=== PATIENT | male | born 1960 | race Caucasian/White ===

== ENCOUNTER 2019-11-16 07:11 | Observation (INO) | payer BC, SELFPAY ==
[2019-11-16] VITALS (13 sets, daily range): BP systolic 120–147; BP diastolic 72–96; PULSE 41–128; RESP 13–18; TEMP 36.1–36.7; O2SAT 95–100; BMI 28.9; BMI 28.5; BMI 28.6
--- NOTE | 2019-11-16 07:44 | EKG12_ITS ---
Test Reason : Blood Pressure : / mmHG Vent. Rate : 142 BPM Atrial Rate : 129 BPM P-R Int : 000 ms QRS Dur : 086 ms QT Int : 318 ms P-R-T Axes : 000 057 004 degrees QTc Int : 489 ms Atrial fibrillation with rapid ventricular response Nonspecific ST abnormality Abnormal ECG Confirmed by ROSALBA HERNANDEZ, AMELIE ([id number]), news copy editor DARIEL BROWN ([id number]) on 11/17/2019 1:01:15 PM Referred By: Confirmed By:AMELIE NAVARRETE MD
--- NOTE | 2019-11-16 07:44 | RAD_ITS ---
STUDY: X-RAY CHEST REASON FOR EXAM: Male, 59 years old. pt says heart rate trouble lately -- some chest pain/pressure TECHNIQUE: AP portable view of the chest. COMPARISON: None. FINDINGS: There are monitoring devices. The lungs are clear and expanded. There is no demonstrated pleural abnormality. Normal size heart. Normal mediastinum and viry. Normal visualized pulmonary arteries. Normal visualized aortic arch and descending thoracic aorta. Normal visualized thoracic spine. Normal visualized ribs, clavicles, and shoulders. There is no demonstrated abnormality of the visualized soft tissue structures of the upper abdomen. RAD/Chest 1 View (Portable) IMPRESSION: Normal x-ray examination of the chest. Electronically Signed: Emmanuel Wynn MD at 8:12 EDT , Service support ,
[2019-11-16] MEDS: Aspirin 81 MG TAB.CHEW 324 MG PO (07:48)
--- NOTE | 2019-11-16 07:49 | ED.DCSUM_ITS ---
- ER Visit Summary Date of Service: 11/16/19 Chief Complaint: Chest pain History of Present Illness: The patient is a 59 M who presents with chest pain that is been intermittent since yesterday. Patient states he has had intermittent pain in the substernal area since yesterday. Patient states when he gets the pain he feels that his heart is irregular. Patient states he tried to capture an EKG on his Apple watch but was unsuccessful. Patient describes his pain as a pressure. Patient states nothing makes it better or worse. Patient states he went running yesterday and did not have any episodes during that. Patient admits to some intermittent lightheadedness. Patient denies any nausea or vomiting. Patient denies any diaphoresis. Patient denies any shortness of breath. Cardiac risk factors include hypercholesterolemia and a family history of coronary artery disease at the age of 55 by his father. Physical Examination: Vital signs are stable. Patient is afebrile. Patient is in no acute distress. Oral mucosa is pink and moist. Neck is supple. Trachea is midline. There is no JVD noted. Heart was regular rate and rhythm. Lungs are clear and equal bilaterally. Abdomen is soft. Bowel sounds are normal. There is no tenderness. There is no rebound or guarding noted. Skin is warm dry. Cranial nerves II through XII are intact. There are no focal motor or sensory deficits noted. Extremities are intact. There is no calf tenderness or edema. Test Results: Initial EKG showed atrial fibrillation with a rate of 142. There are no acute ST or T wave changes. While I was in the room with the patient he converted spontaneously to normal sinus rhythm. Repeat EKG showed sinus rhythm with a rate of 59. There are no acute ST or T wave changes. CBC and basic metabolic profile were essentially within normal limits. Troponin was normal. Magnesium was normal. TSH was normal. Portable chest x-ray was obtained. There is no acute cardiopulmonary process. This was interpreted by the radiologist and reviewed by myself. Emergency Department Course and Treatment: Patient was given aspirin here. Patient had no further episodes of atrial fibrillation here in the emergency department. Patient was feeling better on reevaluation. Case was discussed with the hospitalist. He will admit the patient to his service for observation. Patient understood and was agreeable with the plan. All questions were answered. Disposition: Admit to hospital Impression: 1. Paroxysmal atrial fibrillation with rapid ventricular response This note was generated with Can[employer] dictation software. It may contain incorrect words, spelling, and punctuation that were not noted in review of the chart prior to signing ED Disposition - Plan for ED Patient: Disposition: Acute Care Hospital [facility] Diagnosis: Paroxysmal atrial fibrillation with rapid ventricular response Referrals: Bi Drew MD [Primary Care Provider] -
--- NOTE | 2019-11-16 07:53 | EKG12_ITS ---
Test Reason : REPEAT Blood Pressure : / mmHG Vent. Rate : 059 BPM Atrial Rate : 059 BPM P-R Int : 160 ms QRS Dur : 088 ms QT Int : 424 ms P-R-T Axes : 032 047 024 degrees QTc Int : 419 ms Sinus bradycardia with sinus arrhythmia Otherwise normal ECG Confirmed by ROSALBA HERNANDEZ, AMELIE ([id number]), health editor DARIEL BROWN ([id number]) on 11/17/2019 1:01:33 PM Referred By: NANCY Confirmed By:AMELIE NAVARRETE MD
[2019-11-16 07:54] LABS: Absolute Lymphocyte Count 1.79 X10^3/uL (0.83-4.51); Absolute Neutrophil Count 3.8 X10^3/uL (2.0-7.7); Basophil# 0.02 X10^3/uL; Basophil% 0.3 % (0-1); Eosinophil# 0.15 X10^3/uL; Eosinophils% 2.3 % (0-5); Hematocrit 47.1 % (40-54); Hemoglobin 16.3 g/dL (13.0-16.5); Lymphocyte # 1.79 X10^3/ul (4.0); Lymphocyte % 27.8 % (19-41); Mean Corp Hgb Conc 34.6 g/dL (32-36); Mean Corpuscular Hgb 30.8 pg (27.0-32.0); Mean Corpuscular Volume 88.9 fL (80-94); Mean Platelet Vol. 10.5 fl (6.2-12.0); Monocyte% 10.9 % (0-10); NRBC Flagged by Analyzer 0 % (0-5); Neutrophil # 3.75 X10^3/uL (2.7-7.7); Neutrophil % 58.2 % (47-70); Platelet Count 129 K/mm3 (150-450); RBC Distribution Width SD 38.7 fl (35.1-43.9); White Blood Count 6.4 K/mm3 (4.4-11.0)
[2019-11-16 08:10] LABS: Anion Gap 5 (5-15); BUN 22 mg/dL (7-18); BUN/Creat Ratio 22.5 RATIO (10-20); Chloride 108 mmol/L (98-107); Creatinine, Serum 0.98 mg/dL (0.70-1.30); EST Glomerular Filtration Rate 84 mL/min (>60); Est Glom Filt Rate - Afr Amer 102 mL/min (>60); Estimated Creatinine Clearance 85.87 ml/min; Glucose 117 mg/dL (74-106); Magnesium 2.1 mg/dL (1.6-2.6); Potassium 3.7 mmol/L (3.5-5.1); Sodium Level 142 mmol/L (136-145); Thyroid Stim Hormone (TSH) 2.55 uIU/mL (0.358-3.74)
--- NOTE | 2019-11-16 13:43 | PCM.HP.STD ---
Problem List (1) Paroxysmal atrial fibrillation with rapid ventricular response Status: Acute (2) HLD (hyperlipidemia) Status: Chronic (3) Hypothyroidism Status: Chronic History of Present Illness Date of Admission: 11/16/19 Chief Complaint: chest pressure The patient is a 59 year old M with pmhx of hypothyroidism and hyperlipidemia who presented to the ER today with chest pressure and abnormal heart rhythm. The patient has been having issues with abnormal heart beat since september. He noticed palpitations and his apple watch EKG was reading abnormal. This would come and go. Today he had palpitations and chest pressure. Chest pressure was midsternal with no SOB, radiation, diaphoresis, or nausea. He checked his pulse at his carotid and it felt irregular. His apple watch did read out afib at one point. He came to the ER and was found to have Afib with RVR rate 148. This spontaneously converted back to NSR in the ER with no medication given. The patient currently has no chest pressure. He has no hx of Afib. He states that he is healthy and a frequent runner, he has done 2 half marathons. He states that he can confirm with his apple watch that his heart normally runs in the 40s, and he can attain 160 when running. [] Past Medical History Past Medical History (Chronic Problems): Chronic Problems HLD (hyperlipidemia) (Chronic) Hypothyroidism (Chronic) Allergies No Known Allergies Allergy (Verified 11/16/19 07:12) Home Medications: Ambulatory Orders Medication Instructions Recorded Levothyroxine [Synthroid] 88 mcg PO DAILY 11/16/19 Simvastatin 5 mg PO DAILY 11/16/19 Surgical History: - - cyst removal Psychiatric History: No pertinent psych hx Lives: With Family Smoking Status: Never smoker Alcohol: None Drugs: None - *Family History Maternal History Items: Cancer - colon Paternal History Items: Heart Disease - multiple MIs between 55 and 65 including CABG and from [place] at 65. Review of Systems Constitutional: Denies: Chills, Fever, Weight Change HEENT: Denies: Head Aches, Sinus Congestion, Sinus Drainage Cardiovascular: Reports: Chest Pressure, Palpitations. Denies: Edema, Light Headedness, Syncope Respiratory: Denies: Cough, Shortness of breath at rest, Sputum production Gastrointestinal: Denies: Abdominal Pain, Nausea, Vomiting Genitourinary: Denies: Dysuria Musculoskeletal: Denies: Joint Pain, Joint Tenderness Skin: Denies: Rash, Wounds Neurological: Denies: Numbness, Tingling, Focal weakness Psychiatric: Denies: Anxiety, Depression, Homicidal Ideations, Suicidal Ideations Hematologic/ Lymphatic: Denies: Easy Bruising, Easy Bleeding VTE Information - Inpt Only VTE Present on Admission: No VTE Mechan Device Prophylaxis: None VTE Pharm Prophylaxis ordered?: Yes Patient Problems: Active and Suspected Problems Paroxysmal atrial fibrillation with rapid ventricular response (Acute) - Physical Exam Vitals/I&O's: Vital Signs Temp Pulse Resp BP Pulse Ox 97.9 F 50 L 14 120/72 98 11/16/19 10:34 11/16/19 10:34 11/16/19 10:34 11/16/19 10:34 11/16/19 10:34 Oxygen Delivery Method Room Air Weight: 199 lb 4.766 oz Body Mass Index (BMI) 28.5 Intake and Output for Last 24 Hours 11/14/19 11/15/19 11/16/19 23:59 23:59 23:59 Intake Total 200 / 200 Balance 200 / 200 General: Alert, Oriented x3, Cooperative HEENT: Atraumatic, PERRLA, EOMI, Normocephalic Neck: Supple, No JVD, Negative Carotid Bruits Lungs: Clear to auscultation, Normal air movement Cardiovascular: Regular rate, No murmurs Abdomen: Bowel Sounds Present, Soft, Non Tender Extremities: No edema, Capillary Refill Less than 3 Seconds Skin: No rashes, No breakdown Musculoskeletal: No Tenderness to Palpation of Joints or Extremities Neurological: Cranial nerves II-XII grossly intact Psych/Mental Status: Normal Affect, Appropriate, Alert and oriented to time, place, person, mood and affect Laboratory Results 11/16/19 07:30: WBC 6.4, RBC 5.30, Hgb 16.3, Hct 47.1, MCV 88.9, MCH 30.8, MCHC 34.6, RDW Std Deviation 38.7, RDW Coeff of Deborah 12.0, Plt Count 129 L, MPV 10.5, Immature Gran % (Auto) 0.500, Neut % (Auto) 58.2, Lymph % (Auto) 27.8, Metcalfe % (Auto) 10.9 H, Eos % (Auto) 2.3, Baso % (Auto) 0.3, Absolute Neuts (auto) 3.8, Absolute Lymphs (auto) 1.79, Nucleated RBC % 0 11/16/19 07:30: Sodium 142, Potassium 3.7, Chloride 108 H, Carbon Dioxide 29.0, Anion Gap 5, BUN 22 H, Creatinine 0.98, Estim Creat Clear Calc 85.87, Est GFR (MDRD) Af Amer 102, Est GFR (MDRD) Non-Af 84, BUN/Creatinine Ratio 22.5 H, Glucose 117 H, Calcium 9.0, Magnesium 2.1, Troponin I < 0.015, TSH 2.55 11/16/19 10:50: Troponin I < 0.015 11/16/19 13:20: Troponin I Pending Current Medications Acetaminophen (Tylenol) 650 mg PO Q6H PRN PRN PRN Reason: Pain Score 1-10/Temp > 100.7 F Atorvastatin Calcium (Lipitor) 5 mg PO QHS TARA Sodium Chloride () 250 mls @ 15 mls/hr IV .[id number] PRN PRN Reason: Saline Flush Sodium Chloride () 250 mls @ 15 mls/hr IV .[id number] PRN PRN Reason: Additional IVPB Infusion Levothyroxine Sodium (Synthroid) 88 mcg PO DAILY@0600 TARA Sodium Chloride () 10 - 40 ml IV UD PRN PRN Reason: SALINE FLUSH Temazepam (Restoril) 15 mg PO QHS PRN PRN PRN Reason: INSOMNIA Assessment/Plan All Active Problems Paroxysmal atrial fibrillation with rapid ventricular response (Acute) 1. pAfib with RVR - he has been having palpitations and abnormal heart beat since september so likely this is not first episode. He had a heart rate of 148 in the ER however it converted to NSR without treatment. His normal resting heart rate is in the 40s, probably because he is a distance runner. Will obtain echo. He has an appointment with [facility] later this month. He is a former patient of Dr. Beasley. -Chadvasc is zero. -trop neg x2 -tsh normal 2. Chest pressure - trop neg. Cycle. repeat am ekg. stress test in AM. + fm hx CAD - father multiple MIs, CABG, age 53-63, at 63 from [place]. 3. hypothyroidism - tsh normal continue synthroid 4. HLD - check FLP continue lipitor. DVT ppx: early ambulation This patient was seen by Nicolas Palma PA-C under the supervision of Dr. Najera.
[2019-11-16] MEDS: Atorvastatin Calcium 10 MG Tablet 5 MG PO (21:29)
[2019-11-17 02:59] VITALS: PULSE 45
[2019-11-17 03:30] VITALS: BP 109/63; PULSE 41; RESP 12; TEMP 37; O2SAT 97
--- NOTE | 2019-11-17 05:55 | EKG12_ITS ---
Test Reason : AM EKG Blood Pressure : / mmHG Vent. Rate : 045 BPM Atrial Rate : 045 BPM P-R Int : 152 ms QRS Dur : 090 ms QT Int : 512 ms P-R-T Axes : 039 062 047 degrees QTc Int : 442 ms Sinus bradycardia Otherwise normal ECG When compared with ECG of 16-NOV-2019 07:41, MANUAL COMPARISON REQUIRED, DATA IS UNCONFIRMED Confirmed by ROSALBA HERNANDEZ, AMELIE ([id number]), newspaper photo editor DARIEL BROWN ([id number]) on 11/18/2019 3:56:41 PM Referred By: FLORIDALMA Confirmed By:AMELIE NAVARRETE MD
--- NOTE | 2019-11-17 05:55 | ECHOD_ITS ---
Reason For Study: A. fib/flutter Procedure This was a 2D Doppler, Color Flow transthoracic echocardiogram. Exam performed portable in patient room. Left Ventricle Normal LV size. Left ventricular systolic function is normal. The estimated ejection fraction is 65 %. No evidence for diastolic dysfunction. No regional wall motion abnormalities noted. Right Ventricle Normal RV size. Normal systolic function. Atria Normal left atrium. Normal right atrium. Mitral Valve Normal mitral valve. Mild (1+) eccentric mitral valve insufficiency. Tricuspid Valve Normal tricuspid valve. Mild (1+) tricuspid valve insufficiency. Aortic Valve Normal aortic valve. Trisinus/trileaflet aortic valve. Pulmonic Valve Normal pulmonic valve. Great Vessels Normal aortic root. The pulmonary artery is normal size. Normal inferior vena cava. Pericardium/Pleural No pericardial effusion. MMode/2D Measurements & Calculations LVIDd: 5.1 cm IVSd: 0.89 cm Ao root diam: 2.9 cm LVIDs: 3.5 cm LVPWd: 0.98 cm FS: 30.9 % LAV(MOD-bp): 52.5 ml LVAd ap4: 30.9 cm2 SV(MOD-sp4): 56.1 ml LAV(MOD-bp) Indexed: 25.2 ml/m2 EDV(MOD-sp4): 103.7 ml LAV(MOD-sp2): 45.7 ml EDV(sp4-el): 101.9 ml LAV(MOD-sp4): 51.6 ml LVAs ap4: 19.4 cm2 ESV(MOD-sp4): 47.6 ml ESV(sp4-el): 46.8 ml EF(MOD-sp4): 54.1 % EF(sp4-el): 54.1 % SV(sp4-el): 55.1 ml LA A4 area: 18.9 cm2 LA dimension(2D): 3.6 cm RA A4 area: 18.5 cm2 Doppler Measurements & Calculations MV E max hank: 61.7 cm/sec Lat Peak E' Hank: 10.4 cm/sec Med Peak E' Hank: 7.9 cm/sec MV A max hank: 56.1 cm/sec E/E' lat: 5.9 E/E' med: 7.8 MV E/A: 1.1 Ao V2 max: 126.8 cm/sec LV V1 max: 98.4 cm/sec PA V2 max: 129.0 cm/sec Ao max P.4 mmHg LV V1 max P.9 mmHg TR max hank: 209.5 cm/sec TR max P.6 mmHg Interpretation Summary Normal LV size. Left ventricular systolic function is normal. The estimated ejection fraction is 65 %. No evidence for diastolic dysfunction. Mild (1+) eccentric mitral valve insufficiency. Ordering Physician: Bi Najera Referring Physician: Bi Drew Performed By: Naz Zheng RDCS
[2019-11-17] MEDS: Levothyroxine 88 MCG Tablet PO (06:11)
[2019-11-17 06:51] VITALS: BP 120/71; PULSE 50; RESP 16; TEMP 36.4; O2SAT 95
[2019-11-17 07:22] VITALS: PULSE 46
[2019-11-17 07:49] LABS: Cholesterol 165 mg/dL (200); High Density Lipoprotein 36 mg/dL; Triglycerides 149 mg/dL; Very Low Density Lipoprotein 30 mg/dL (5-40)
[2019-11-17 10:18] VITALS: BP 113/69; PULSE 59; RESP 16; TEMP 36.6; O2SAT 97
--- NOTE | 2019-11-17 12:54 | STRESSREP_ITS ---
Stress Test Report Exercise myocardial perfusion stress test. 59-year-old male with a history of chest pain. Stress protocol: Resting EKG demonstrates sinus bradycardia with a rate of 50 bpm normal intervals are noted resting blood pressures 128/72 mmHg. The patient exercised according to the regular Bertin protocol for a total duration of 12 minutes. The maximum heart rate attained was 157 bpm which was 96% of maximum predicted heart rate the maximum workload was 13.7 metabolic equivalents. At rest there were no ST or T wave changes noted to suggest ischemia at peak exercise no ST or T wave changes were noted to suggest ischemia. No clinical angina was noted. The resting blood pressure was 128/72 with a peak blood pressure 188/82. Rate-press ure product was 29,500. Myocardial perfusion protocol. 12.0 mCi of technetium 99m sestamibi was injected at rest. The patient exercised according to regular Bertin protocol. At peak exercise 36.0 mCi of technetium 99m sestamibi was injected stress images were obtained stress and rest images were reconstructed and compared in the short axis vertical long horizontal long axis. Gated images were also obtained Perfusion SPECT analysis: Review of the stress images demonstrate normal uptake of tracer noted in all areas of the myocardium the resting images similar demonstrate normal uptake of tracer noted in all areas of the myocardium. No areas of reversibility are noted suggest ischemia no previous infarct is noted. Gated SPECT analysis: Gated ejection fraction is noted to be 60%. Conclusion: Normal exercise myocardial perfusion stress test at a high workload. Preserved ejection fraction.
--- NOTE | 2019-11-17 14:45 | DCINST_ITS ---
- Discharge Diagnoses Current Active Problems: Current Active and Chronic Problems Paroxysmal atrial fibrillation with rapid ventricular response (Acute) HLD (hyperlipidemia) (Chronic) Hypothyroidism (Chronic) You will use the following diet at home:: Cardiac Your food should be the consistency of: Regular Your liquids should be the consistency of: Regular/Thin Discharge Activity: Return to Normal Activity Allergies/Adverse Reactions: Allergies No Known Allergies Allergy (Verified 11/16/19 07:12) Medications to take at Discharge Levothyroxine [Synthroid] 88 mcg PO DAILY 11/16/19 Simvastatin 5 mg PO DAILY 11/16/19 Orders to be completed after discharge: 30-Day Event Recorder [[facility]] Time Frame: 11/17/19, Location: None Selected Primary Care Physician: Bi Drew MD [Primary Care Provider] - Please follow up with your Primary Care Physician in: 1-2 weeks Test Results: Test results from this visit will be discussed in further detail at your follow- up appointment, if applicable. Please Follow Up With: Tramaine Mistry MD When: 4 weeks Proposed Discharge Date: 11/17/19
--- NOTE | 2019-11-17 14:46 | DS.PCM_ITS ---
<Nicolas Palma - Last Filed: 11/17/19 14:46> Discharge Date and Diagnosis Date of Admission: 11/16/19 Date of Discharge: 11/17/19 - Primary Discharge Diagnosis Active and Suspected Problems Paroxysmal atrial fibrillation with rapid ventricular response Chest pressure 2/2 above Hypothyroidism HLD - Secondary Discharge Diagnosis Chronic Problems HLD (hyperlipidemia) (Chronic) Hypothyroidism (Chronic) Hospital Course and Treatment Imaging Results: Diagnostics Stress test: Normal exercise myocardial perfusion stress test at a high workload. Preserved ejection fraction. 2D Echo: Interpretation Summary Normal LV size. Left ventricular systolic function is normal. The estimated ejection fraction is 65 %. No evidence for diastolic dysfunction. Mild (1+) eccentric mitral valve insufficiency. RAD/Chest 1 View (Portable) IMPRESSION: Normal x-ray examination of the chest. Operations: None Procedures: 2-D Echocardiogram, Stress test Summary of Care Provided: Hospital Course: The patient is a 59 year old M with pmhx of hypothyroidism and hyperlipidemia who presented to the ER with chest pressure and palpitations. He had been having palpitations for about a month and his apple watch had detected both irregular rhythms and afib. He had been in his normal state of health with no recent illness or infection. The day of presentation he had palpitations, midsternal chest pressure, and he checked his pulse and it felt irregular. He came to the ER and was found to have afib with RVR rate in the 140s. He did not receive any medication however spontaneously converted back to NSR. His resting heart rate is normally in the 40s. He is a distance runner. He was admitted to PCU. Repeat EKG had no ischemic changes. troponin was negative x3. TSH was normal. The following day he had a negative stress test and echo which showed 1+ MVI and TVI, preserved EF. With his low resting heart rate we were hesitant to start antiarrhymic therapy. He remained in SR throughout stay. We discharged him home in stable condition with a 30 day event monitor and with follow up with cardiology, Dr. Mistry. He will also need follow up with his PCP in 1-2 weeks. This patient was seen by Nicolas Palma PA-C under the supervision of Dr. Lagos. [] - Physical Exam Vitals/I&O's: Vital Signs Temp Pulse Resp BP Pulse Ox 97.8 F 59 L 16 113/69 97 11/17/19 10:18 11/17/19 10:18 11/17/19 10:18 11/17/19 10:18 11/17/19 10:18 Oxygen Delivery Method Room Air Weight: 199 lb 4.766 oz Body Mass Index (BMI) 28.5 Intake and Output for Last 24 Hours 11/15/19 11/16/19 11/17/19 23:59 23:59 23:59 Intake Total 1000 / 1000 240 / 240 Balance 1000 / 1000 240 / 240 General: Alert, Oriented x3, Cooperative HEENT: Atraumatic, PERRLA, EOMI, Normocephalic Neck: Supple, No JVD, Negative Carotid Bruits Lungs: Clear to auscultation, Normal air movement Cardiovascular: Regular rate, No murmurs Abdomen: Bowel Sounds Present, Soft, Non Tender Extremities: No edema, Capillary Refill Less than 3 Seconds Skin: No rashes, No breakdown Musculoskeletal: No Tenderness to Palpation of Joints or Extremities Neurological: Cranial nerves II-XII grossly intact Psych/Mental Status: Normal Affect, Appropriate, Alert and oriented to time, place, person, mood and affect Laboratory Results 11/17/19 06:16: Triglycerides 149, Cholesterol 165, LDL Cholesterol 99, VLDL Cholesterol 30, HDL Cholesterol 36 L Current Medications Acetaminophen (Tylenol) 650 mg PO Q6H PRN PRN PRN Reason: Pain Score 1-10/Temp > 100.7 F Atorvastatin Calcium (Lipitor) 5 mg PO QHS [facility] Last Admin: 11/16/19 21:29 Dose: 5 mg Documented by: Sodium Chloride () 250 mls @ 15 mls/hr IV .[id number] PRN PRN Reason: Saline Flush Sodium Chloride () 250 mls @ 15 mls/hr IV .[id number] PRN PRN Reason: Additional IVPB Infusion Levothyroxine Sodium (Synthroid) 88 mcg PO DAILY@0600 [facility] Last Admin: 11/17/19 06:11 Dose: 88 mcg Documented by: Sodium Chloride () 10 - 40 ml IV UD PRN PRN Reason: SALINE FLUSH Temazepam (Restoril) 15 mg PO QHS PRN PRN PRN Reason: INSOMNIA Discharge Diet: Low fat/ Low Cholesterol, 2000 mg Sodium Diet Discharge Activity: Return to Normal Activity Home Medications: Medications to take at Discharge Levothyroxine [Synthroid] 88 mcg PO DAILY 11/16/19 Simvastatin 5 mg PO DAILY 11/16/19 Other Amb Orders: 30-Day Event Recorder [[facility]] Time Frame: 11/17/19, Location: None Selected Primary Care Physician: Bi Drew MD [Primary Care Provider] - Please follow up with your Primary Care Physician in: 1-2 weeks Please Follow Up With: Tramaine Mistry MD When: 4 weeks Disposition: Home Minutes spent on discharge:: 35 Patient Condition:: Stable Medical Necessity - Tobacco Use Smoking Status: Never smoker Meaningful Use Info Meaningful Use Diagnoses (Choose all that apply): None applicable <Ngoc Lagos - Last Filed: 11/17/19 19:09> Discharge Date and Diagnosis - Secondary Discharge Diagnosis Chronic Problems HLD (hyperlipidemia) (Chronic) Hypothyroidism (Chronic) Hospital Course and Treatment Summary of Care Provided: Patient seen by Nicolas Palma PA-C under my supervision The patient is a 59 year old M with a past medical history of hypothyroidism and hyperlipidemia was admitted through the ED with a complaint of chest pressure and palpitations. Palpitations have been going on for about a month and he had seen on his apple watch that his heart rate would go as high as the 150s. There was detected irregular rhythms in A. fib. He had onset symptoms in the past. On admission in the ED, he was found to have A. fib with heart rate in the 140s he is converted spontaneously back to normal sinus rhythm. Whilst on admission, heart rate was in the 40s and he said this was normal for him as he was a long distance runner. He was admitted and managed for paroxysmal A. fib. Troponins x3 were negative and TSH was normal. Stress test done was negative and 2D echo done showed EF of 65% with no evidence of diastolic dysfunction with no regional wall motion abnormalities seen. Patient remained stable and remained in normal sinus rhythm throughout admission. I discussed this with cardiology as his heart rate was in the 40s but could go up in the 140s. Per recommendation of cardiology, patient was placed on Holter monitor for 30 days and is to follow-up with the Dr. Mistry and Holter results also be sent to Dr. wilkins to be read as well. He was not discharged on any medications for now on account of his stable heart rate during admission. He is to follow-up with his primary care doctor and also to follow-up with cardiology. Seen and examined prior to discharge. He felt well and had no complaints. Review systems otherwise negative. Labs and vitals reviewed. Home medication reviewed and reconciled. o/e: Vital Signs Temp Pulse Resp BP Pulse Ox 97.8 F 59 L 16 113/69 97 11/17/19 10:18 11/17/19 10:18 11/17/19 10:18 11/17/19 10:18 11/17/19 10:18 [] General: Alert, Oriented x3, Cooperative HEENT: Atraumatic, PERRLA, EOMI, Normocephalic Neck: Supple, No JVD, Negative Carotid Bruits Lungs: Clear to auscultation, Normal air movement Cardiovascular: bradycardic, no murmurs, normal S1 and S2 Abdomen: Bowel Sounds Present, Soft, Non Tender Extremities: No edema, Capillary Refill Less than 3 Seconds Skin: No rashes, No breakdown Musculoskeletal: No Tenderness to Palpation of Joints or Extremities Neurological: Cranial nerves II-XII grossly intact Psych/Mental Status: Normal Affect, Appropriate, Alert and oriented to time, place, person, mood and affect Plan as above. Rest as per Nicolas Palma PA-C's note, which I have reviewed and endorsed. - Physical Exam Vitals/I&O's: Vital Signs Temp Pulse Resp BP Pulse Ox 97.8 F 59 L 16 113/69 97 11/17/19 10:18 11/17/19 10:18 11/17/19 10:18 11/17/19 10:18 11/17/19 10:18 Oxygen Delivery Method Room Air Weight: 199 lb 4.766 oz Body Mass Index (BMI) 28.5 Intake and Output for Last 24 Hours 11/15/19 11/16/19 11/17/19 23:59 23:59 23:59 Intake Total 1000 / 1000 240 / 240 Balance 1000 / 1000 240 / 240 Laboratory Results 11/17/19 06:16: Triglycerides 149, Cholesterol 165, LDL Cholesterol 99, VLDL Cholesterol 30, HDL Cholesterol 36 L OBSV E&M: 90099 Observation care discharge
== END 2019-11-17 15:57 | disposition home or self-care (01) ==
LOC: ED 08:18 → PCU 09:37
PROVIDERS: Admitting Provider Internal Medicine; Emergency Provider Emergency Medicine; PCP Family Medicine; Visit Provider Student in an Organized Health Care Education/Training Program
DX: I48.0 Paroxysmal atrial fibrillation (principal); E03.9 Hypothyroidism, unspecified; E78.5 Hyperlipidemia, unspecified; Z79.899 Other long term (current) drug therapy; Z82.49 Family history of ischemic heart disease and other diseases of the circulatory system; I08.1 Rheumatic disorders of both mitral and tricuspid valves; R00.1 Bradycardia, unspecified
CPT/HCPCS: 36415; 71045; 78452; 80048; 80061; 83735; 84443; 84484; 85025; 93005; 93017; 93306; 99218; 99285; A9500; A4216; G0378

== ENCOUNTER → 2024-11-25 | Outpatient (CLI) | payer BC, SELFPAY ==
--- NOTE | 2024-11-25 08:36 | EKG12_ITS ---
Test Reason : PREOP Blood Pressure : */* mmHG Vent. Rate : 58 BPM Atrial Rate : 58 BPM P-R Int : 152 ms QRS Dur : 88 ms QT Int : 440 ms P-R-T Axes : 4 60 41 degrees QTcB Int : 431 ms Sinus bradycardia Otherwise normal ECG Confirmed by Jean Mcmullen ([id number]), assistant film editor PAULA CHU ([id number]) on 12/01/2024 12:52:58 PM Referred By: Mickey Plascencia Confirmed By: Jean Mcmullen
== END | disposition home or self-care (01) ==
PROVIDERS: PCP Family Medicine; Referring Provider Otolaryngology; Visit Provider Otolaryngology
DX: Z01.812 Encounter for preprocedural laboratory examination (principal)
CPT/HCPCS: 93005

== ENCOUNTER → 2024-12-11 | Outpatient (CLI) | payer BC, SELFPAY ==
[2024-12-11 12:37] LABS: Hematocrit 45.2 % (40-54); Hemoglobin 15.7 g/dL (13.0-16.5); Mean Corp Hgb Conc 34.7 g/dL (32-36); Mean Corpuscular Hgb 30.7 pg (27.0-32.0); Mean Corpuscular Volume 88.5 fL (80-94); Mean Platelet Vol. 10.6 fl (6.2-12.0); Platelet Count 145 K/mm3 (150-450); RBC Distribution Width CV 12.5 % (11.6-14.6); RBC Distribution Width SD 40.7 fl (35.1-43.9); Red Blood Count 5.11 M/mm3 (4.6-6.2); White Blood Count 6.8 K/mm3 (4.4-11.0)
[2024-12-11 13:16] LABS: ALB/GLOB Ratio 1.6 RATIO (0.9-2.4); AST(SGOT) 51 U/L (<=37); Alanine Aminotransfer ALT/SGPT 46 U/L (<=46); Albumin, Serum 4.6 g/dL (3.4-4.8); Alkaline Phosphatase 72 U/L (40-129); Anion Gap 11 (5-15); BUN 21 mg/dL (4-19); BUN/Creat Ratio 17.8 RATIO (10-20); Calcium,Total 9.6 mg/dL (7.6-11.0); Carbon Dioxide 25.5 mmol/L (21.0-32.0); Chloride 103 mmol/L (98-108); Creatinine, Serum 1.16 mg/dL (0.70-1.20); EST Glomerular Filtration Rate 71 (>60); Globulin 2.8 g/dL (2.2-4.2); Glucose 97 mg/dL (70-99); Potassium 4.2 mmol/L (3.3-5.1); Protein, Total 7.3 g/dL (5.9-8.4); Sodium Level 140 mmol/L (133-145); Total Bilirubin 1.13 mg/dL (0.00-1.30)
== END | disposition home or self-care (01) ==
LOC: LAB 11:56
PROVIDERS: PCP Family Medicine; Referring Provider Internal Medicine Endocrinology, Diabetes & Metabolism; Visit Provider Otolaryngology
DX: Z01.818 Encounter for other preprocedural examination (principal); E03.8 Other specified hypothyroidism
CPT/HCPCS: 36415; 80053; 84443; 85027

== ENCOUNTER → 2024-12-23 | Outpatient (CLI) | payer BC, SELFPAY ==
--- NOTE | 2024-12-22 11:30 | MASS_PTH ---
PATIENT: ISAEL MONTAÑO LOC: [facility] U#:[id number] AGE/SX: 64/M ROOM: RE12/23/[address]: Dr. Mickey Plascencia MD : [id number] BED: DIS: 12/23/2024 SPEC #: [id number] RECD: 12/23/24 15:16 STATUS: TIFFANI REQ #: [id number] ADAIR: 12/22/24 11:[address]: Mickey Plascencia DEPT: SURGICAL PATHOLOGY RECD BY: Alan Cage ENTERED: 12/24/24 09:34 SP TYPE: Mass OTHR DR: Dr. Bi Drew MD Tissues: Ear, NOS Procedures: Surgery Specimen Level IV HEADER OPERATION: Excision left ear canal mass PRE-OP DIAGNOSIS: Other benign neoplasm of skin of left ear and external auricular canal TISSUE SUBMITTED: A- Left ear canal mass MICROSCOPIC DIAGNOSIS A. Ear canal, left, mass, excision: * Verruca vulgaris. MICROSCOPIC DESCRIPTION Slides are reviewed. GROSS DESCRIPTION Received in formalin labeled with the patient's name and date of . Designated as L ear canal mass is a 0.5 x 0.5 x 0.3 cm irregular portion of apparent skin surface by 0.3 x 0.3 x 0.3 cm zelaya-white verrucoid lesion. The resection margin is inked black. Entirely submitted in 1 cassette. NV 12/24/2024 CPT:88498
== END | disposition home or self-care (01) ==
LOC: LABSPEC 15:57
PROVIDERS: PCP Family Medicine; Referring Provider Otolaryngology; Visit Provider Otolaryngology
DX: H93.8X2 Other specified disorders of left ear (principal)
CPT/HCPCS: 88305